=== PATIENT | male | born 1995 ===

== ENCOUNTER 2025-05-03 09:18 | Emergency (ER) | payer OTHER ==
[2025-05-03] MEDS ORDERED: Sodium Chloride 0.9% 10 ML Syringe FLUSH PRN (09:29)
[2025-05-03 09:38] LABS: BASOPHILS ABSOLUTE AUTO 0.08 10^3/uL (0.00-0.10); BASOPHILS PERCENT AUTO 0.9 % (0.0-1.0); EOSINOPHILS ABSOLUTE AUTO 0.51 10^3/uL (0.10-0.30); EOSINOPHILS PERCENT AUTO 5.7 % (1.0-3.0); IMMATURE GRAN ABSOLUTE AUTO 0.07 10^3/uL (0.00-0.04); IMMATURE GRAN PERCENT AUTO 0.8 % (0.0-0.4); LYMPHOCYTES ABSOLUTE AUTO 3.89 10^3/uL (1.00-4.00); LYMPHOCYTES PERCENT AUTO 43.8 % (20.0-40.0); MEAN PLATELET VOLUME 9.4 fL (7.4-10.4); MONOCYTES ABSOLUTE AUTO 0.60 10^3/uL (0.10-0.80); MONOCYTES PERCENT AUTO 6.8 % (2.0-8.0); NEUTROPHILS ABSOLUTE AUTO 3.73 10^3/uL (2.50-7.00); NEUTROPHILS PERCENT AUTO 42.0 % (50.0-70.0); PLATELET COUNT,PLT 318 10^3/uL (150-400); RED BLOOD CELL COUNT 5.28 10^6/uL (4.50-6.00); RED CELL DISTRIBUTION WIDTH 11.5 % (11.5-14.5); WHITE BLOOD CELL COUNT,WBC 8.88 10^3/uL (5.00-10.00)
[2025-05-03] MEDS: Ondansetron 4 MG/2 ML SDV IVPUSH ONE (09:40)
[2025-05-03 09:48] LABS: ALANINE AMINOTRANSFERASE,ALT 126 U/L (14-63); ASPARTATE AMNIOTRANSFERASE,AST 41 U/L (15-37); BILIRUBIN TOTAL 0.6 mg/dL (0.2-1.0); BLOOD UREA NITROGEN,BUN 15 mg/dL (7-18); CARBON DIOXIDE,CO2 26.8 mmol/L (21.0-32.0); CHLORIDE,CL 103 mmol/L (98-107); CREATININE 0.98 mg/dL (0.51-1.17); GLUCOSE RANDOM 129 mg/dL (70-140); POTASSIUM,K 2.9 mmol/L (3.5-5.1); PROTEIN TOTAL,TP 7.9 g/dL (6.4-8.2); SODIUM,NA 141 mmol/L (136-145)
[2025-05-03 09:52] LABS: ESTIMATED GFR 106 mL/min (>=60)
[2025-05-03 10:03] LABS: INR 1.1 (0.9-1.1); PTT,PARTIAL THROMBOPLSTIN TIME 22.5 SEC (21.6-32.4)
[2025-05-03 10:26] LABS: APPEARANCE,URINE CLEAR (CLEAR); GLUCOSE,URINE NEGATIVE (NEGATIVE); OCCULT BLOOD,URINE NEGATIVE (NEGATIVE)
[2025-05-03] MEDS: NS with KCl 40mEq 1,000 ML IV SCH (10:31)
[2025-05-03 10:32] LABS: EPITHELIAL CELLS,URINE RARE /LPF
[2025-05-03] MEDS: levETIRAcetam 500 MG/5 ML SDV IVPUSH ONE (11:01)
[2025-05-03] MEDS: Ondansetron 4 MG/2 ML SDV ONE ×2 (11:11)
== END 2025-05-03 11:25 ==
LOC: EDBD → KA.ED 09:18
DX: S06.5X9A Traumatic subdural hemorrhage with loss of consciousness of unspecified duration, initial encounter (principal); S02.0XXA Fracture of vault of skull, initial encounter for closed fracture; M25.512 Pain in left shoulder; E87.6 Hypokalemia; W11.XXXA Fall on and from ladder, initial encounter
CPT/HCPCS: 70450; 71045; 72125; 72170; 80053; 81001; 85025; 85610; 85730; 96361; 96365; 96375; 99284; 99285-25; J1953; J2405; J3480; J7030